=== PATIENT | male | born 1975 | race Caucasian/White ===

== ENCOUNTER 2022-08-19 15:19 | Emergency (ER) | payer BC, OTHER ==
[2022-08-19 16:23] VITALS: TEMP 98
[2022-08-19] MEDS ORDERED: PROPARACAINE 0.5% OPHTH DROPS 15 ML BTL LEFT EYE STA (16:28)
[2022-08-19] MEDS ORDERED: FLUORESCEIN STRIPS 1 MG STRIP LEFT EYE ONE (16:31)
[2022-08-19] MEDS ORDERED: FLUORESCEIN STRIPS 1 MG STRIP RIGHT EYE ONE (16:42)
[2022-08-19] MEDS ORDERED: KETOROLAC 15 MG/ML 1 ML VIAL IM STA (17:35)
[2022-08-19] MEDS ORDERED: HYDROmorphone 1 MG/ML 1 ML SYRINGE IM STA (17:58)
[2022-08-19] MEDS ORDERED: ERYTHROMYCIN 5 MG/GM OPHTH OINT 1 GM TUBE BOTH EYES SCH (18:00)
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
[2022-08-19] MEDS ORDERED: DIPH,PERTUS(ACELL)TETVAC-LF 0.5 ML VIAL IM ONE (18:50)
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
[2022-08-19 19:05] VITALS: BP 198/92; PULSE 74; RESP 18
== END 2022-08-19 19:05 | disposition home or self-care (01) ==
LOC: EC 15:19
DX: S05.00XA Injury of conjunctiva and corneal abrasion without foreign body, unspecified eye, initial encounter (principal); T23.109A Burn of first degree of unspecified hand, unspecified site, initial encounter; E11.9 Type 2 diabetes mellitus without complications; I10 Essential (primary) hypertension; F17.200 Nicotine dependence, unspecified, uncomplicated; Z23 Encounter for immunization; W22.8XXA Striking against or struck by other objects, initial encounter
CPT/HCPCS: 99284; 96372 ×2; 90471; 70480; 90715; J1170; J1885